=== PATIENT | female | born 1985 | race Caucasian/White ===

== ENCOUNTER 2022-01-07 16:47 | Outpatient (REF) | payer MEDICAID, SELFPAY ==
--- NOTE | 2022-01-07 16:20 | PAPFT_PTH ---
PATIENT: Moe Choudhury LOC: [facility] U#:[id number] AGE/SX: 36/F ROOM: RE01/07/[address]: Erika Cain MD : 1985 BED: DIS: 01/07/2022 SPEC #: [id number] RECD: 01/07/22 17:52 STATUS: BRIEN REQ #: [id number] KARINA: 01/07/22 16:[address]: Erika Cain DEPT: [facility] Cytology RECD BY: Bernadette Rome ENTERED: 01/07/22 17:52 SP TYPE: PAPFT OT DR: Unknown,Unknown Tissues: 1 - CX/ENDOCX FOR PAP SMEARS Procedures: PAP THIN PREP/[facility] Screening HPV DNA PROBE Comments: [id number]
== END 2022-01-07 16:48 | disposition home or self-care (01) ==
LOC: LBN 16:47
PROVIDERS: Visit Provider Obstetrics & Gynecology
DX: Z12.4 Encounter for screening for malignant neoplasm of cervix (principal); Z11.51 Encounter for screening for human papillomavirus (HPV)
CPT/HCPCS: 88142; 87624